=== PATIENT | male | born 1980 | race Caucasian/White ===

== ENCOUNTER 2019-09-10 22:19 | Emergency (ER) | payer OTHER ==
[2019-09-10 22:26] VITALS: BP 118/77; PULSE 68; RESP 16; TEMP 98
--- NOTE | 2019-09-10 23:04 | ED ---
Lower Extremity Injury HPI - General Chief Complaint: Extremity Injury, Lower Stated Complaint: Ankle Injury, [facility] Time Seen by Provider: 09/10/19 22:29 Source: patient Mode of arrival: ambulatory Limitations: no limitations - History of Present Illness Initial Comments: Patient is a 39-year-old male presenting to the emergency Department with complaints of left ankle injury that happened just prior to arrival. Patient states he [place] and tripped in a large hole. He states the swelling and pain has been increasing so he decided to be seen. Patient denies any previous surgeries or injuries to his left ankle. He denies any other injuries from this fall. He has no further complaints at this time. Upon arrival to the ER, his vitals are stable. - Related Data Allergies Allergy/AdvReac Type Severity Reaction Status Date / Time No Known Allergies Allergy Verified 09/10/19 22:26 Review of Systems ROS Statement: Those systems with pertinent positive or pertinent negative responses have been documented in the HPI. ROS Other: All systems not noted in ROS Statement are negative. Past Medical History Past Medical History: No Reported History History of Any Multi-Drug Resistant Organisms: None Reported Past Surgical History: No Surgical Hx Reported Past Psychological History: No Psychological Hx Reported Smoking Status: Never smoker Past Alcohol Use History: Occasional Past Drug Use History: None Reported General Exam - General Exam Comments Initial Comments: GENERAL: Well-appearing, well-nourished and in no acute distress. HEAD: Atraumatic, normocephalic. EYES: Pupils equal round and reactive to light, extraocular movements intact, sclera anicteric, conjunctiva are normal. ENT: TMs normal, nares patent, oropharynx clear without exudates. Moist mucous membranes. NECK: Normal range of motion, supple without lymphadenopathy or JVD. LUNGS: Breath sounds clear to auscultation bilaterally and equal. No wheezes rales or rhonchi. HEART: Regular rate and rhythm without murmurs, rubs or gallops. ABDOMEN: Soft, nontender, normoactive bowel sounds. No guarding, no rebound. No masses appreciated. : Deferred EXTREMITIES: Pain with palpation of the ED on lateral malleoli of the left ankle. He is neurovascular intact. He does have decreased range of motion in plantar and dorsiflexion secondary to pain and swelling. He does have a moderate amount of swelling around his left ankle. He is neurovascular intact. No clubbing or cyanosis. NEUROLOGICAL: Normal speech. PSYCH: Normal mood, normal affect. SKIN: Warm, Dry, normal turgor, no rashes or lesions noted. Limitations: no limitations Course Vital Signs 09/10/19 22:22 Temperature 98 F Pulse Rate 68 Respiratory 16 Rate Blood Pressure 118/77 O2 Sat by Pulse 98 Oximetry Procedures - Orthopedic Splinting/Casting Injury #1 Side: left Lower Extremity Injury Location: short leg, ankle Lower Extremity Immobilizer: posterior splint, stirrup splint, Lucio wrap, synthetic pre-padded splint Medical Decision Making - Medical Decision Making Patient is a 39-year-old male presenting with an injury to his left ankle after he stepped in a hole. X-rays didn't reveal an acute lateral malleolus fracture as well as soft tissue swelling. There is a calcification in the posterior male was but this could be an old injury. Patient was placed in a stirrup and posterior splint. He will remain nonweightbearing. He will follow up with orthopedics on Friday. Patient is stable for discharge. He is in agreement with this plan of care. Return parameters were discussed with the patient and he verbalized understanding. Case discussed with Dr. Tamayo. Disposition Clinical Impression: Fracture of distal end of left fibula Disposition: HOME SELF-CARE Condition: Stable Instructions (If sedation given, give patient instructions): Ankle Fracture (ED) Additional Instructions: Please return to the Emergency Department if symptoms worsen or any other concerns. Make sure to elevate the leg above the level of the heart 3-4 times daily, ice to the area. Follow-up with orthopedics Friday as discussed. Keep splint in place until follow-up. Ibuprofen for discomfort and swelling. Is patient prescribed a controlled substance at d/c from ED?: No Referrals: None,Stated [Primary Care Provider] - 1-2 days Gabriel Arreola DO [Medical Doctor] - 1-2 days
--- NOTE | 2019-09-10 23:25 | XR ---
EXAMINATION TYPE: XR ankle complete LT DATE OF EXAM: 09/10/2019 COMPARISON: NONE HISTORY: Pain TECHNIQUE: 3 views FINDINGS: There is nondisplaced oblique fracture distal fibula. There is soft tissue swelling around the ankle joint. The distal tibia appears intact. Talus appears intact. There is some calcification a t the posterior malleolus on the lateral view that could relate to an old injury. IMPRESSION: Acute lateral malleolus fracture. Soft tissue swelling. Calcification at the posterior ma lleolus probably due to old injury but small acute chip fracture not entirely excluded.
[2019-09-10] MEDS ORDERED: KETOROLAC 60 MG/2 ML VIAL IM STA (23:39)
--- NOTE | 2019-09-11 09:57 | CDI ---
Dear DR Tamayo, Please do the Adendum for moderate sedetaion with start and stop time no sedation was done for this patient MTDD
== END 2019-09-11 00:15 | disposition home or self-care (01) ==
LOC: EC 22:19
DX: S82.65XA Nondisplaced fracture of lateral malleolus of left fibula, initial encounter for closed fracture (principal); W01.0XXA Fall on same level from slipping, tripping and stumbling without subsequent striking against object, initial encounter; Y92.89 Other specified places as the place of occurrence of the external cause; Y93.01 Activity, walking, marching and hiking
CPT/HCPCS: 73610; 96372; 29515; 99283; J1885